=== PATIENT | female | born 1985 | race Caucasian/White ===

== ENCOUNTER 2020-02-05 19:36 | Emergency (ER) | payer SELFPAY ==
[2020-02-05 19:55] VITALS: BP 136/99; PULSE 92; RESP 18; TEMP 35.9; O2SAT 99; BMI 30.9
--- NOTE | 2020-02-05 20:06 | XRR_ITS ---
PROCEDURE INFORMATION: Exam: XR Chest, 2 Views Exam date and time: 02/05/2020 8:07 PM Age: 34 years old Clinical indication: Cough and shortness of breath; Patient HX: Headache, sinus infection, SOB, cough, chest pain TECHNIQUE: Imaging protocol: XR of the chest Views: 2 views. COMPARISON: [place] Chest 1 [place] [id number] 10/03/2017 4:37 PM FINDINGS: Lungs: Unremarkable. No consolidation. Pleural space: No pneumothorax. Heart/Mediastinum: Unremarkable. No cardiomegaly. Bones/joints: No acute findings. XR/XR chest 2V* [id number] IMPRESSION: No acute findings.
--- NOTE | 2020-02-05 20:18 | W.ED.GENADLT ---
HPI - General Adult General: Chief complaint: General Medical Stated complaint: hot flashes, various aches and pain, migraines Time Seen by Provider: 02/05/20 20:06 Source: patient Mode of arrival: ambulatory Limitations: no limitations History of Present Illness: HPI narrative: 34-year-old female who states she has been having sinusitis-like symptoms over the last 2 weeks. States she has had a sinus headache over her maxillary and frontal sinuses. States it is point tender to touch states she her headache is a 5 out of 10. Denies any vomiting or diarrhea. She states she had a slight cough. She denies any fevers. She was placed on a Z-Rk last week with no improvement. Associated symptoms: Reports headache(s); Deny chest pain, nausea, rash or vomiting Review of Systems Const: Denies: fever(s), chills, body aches or change in appetite Eyes: Denies: blurry vision or eye discomfort ENMT: Reports: nasal congestion and sinus pain Card: Denies: chest pain Resp: Reports: non-productive cough GI: Denies: abdominal pain, nausea, vomiting or diarrhea : Denies: dysuria Musc: Denies: neck pain or back pain Skin/Breast: Denies: rash Neuro: Reports: headache(s) Psych: Denies: depression Gregorio/Lymph: Denies: easy bruising All/Imm: Denies: urticaria [facility] ED Female Reproductive History: Date of last menstrual period: 01/22/20 Physical Exam Const: COMMON NORMALS: no acute distress, patient oriented x3 and healthy appearing HENMT: COMMON NORMALS: normocephalic and atraumatic HEAD & SCALP: normocephalic and atraumatic OTHER: tenderness over frontal sinus Eye: COMMON NORMALS: Equal, round and reactive pupils present and EOMs intact bilaterally PUPIL: Yes Equal, round and reactive pupils present Neck/C-Spine: COMMON NORMALS: full ROM and supple Chest: COMMONS NORMALS: normal inspection of the chest and normal palpation of entire chest wall Resp: COMMON NORMALS: normal respiratory effort, No retractions, No use of accessory muscles and clear to auscultation bilaterally AUSCULTATION: clear to auscultation bilaterally Cardio: COMMON NORMALS: regular rate, regular rhythm and No murmurs present (Cardio) RATE: regular rate RHYTHM: regular rhythm GI: COMMON NORMALS: Normal to inspection, nondistended, normoactive bowel sounds present, Soft to palpation, non-tender and no masses PALPATION: Yes Soft to palpation Extremity: COMMON NORMALS: normal to inspection and full ROM Neuro: COMMON NORMALS: patient oriented x3, moves all extremities and no focal motor deficits Psych: COMMON NORMALS: mental status grossly normal, Normal thought process present and cooperative THOUGHT PROCESS: Normal thought process present Skin: COMMON NORMALS: no rashes or lesions noted and no wounds GENERAL SKIN EXAM: no rashes or lesions noted Course Vital Signs: Vital signs: Vital Signs Temperature 96.7 F L 02/05/20 19:55 Pulse Rate 92 02/05/20 19:55 Respiratory Rate 18 02/05/20 19:55 Blood Pressure 136/99 02/05/20 19:55 Pulse Oximetry 99 02/05/20 19:55 MDM - General Adult MDM Narrative: Medical decision making narrative: Sravanthi presents here with a headache with a likely sinus infection. She is tender over her sinuses and has no signs of trapezoid hemorrhage. We will place her on Keflex and she is stable for discharge. Chest x-ray here is normal and has no signs of pneumonia. She is to follow-up with PCP in 3 to 5 days and return to ER if worsening. Imaging Data^: CXR: Attestation: I personally reviewed and interpreted this imaging study as follows: My impression: no acute abnormality Discharge Plan Discharge Patient Disposition: Home Clinical Impression: Sinusitis Qualifiers: Sinusitis location: frontal Chronicity: acute Recurrence: not specified as recurrent Qualified Code(s): J01.10 - Acute frontal sinusitis, unspecified Condition: Stable Prescriptions: New Keflex 500 mg capsule 500 mg PO TID 10 Days Qty: 30 RF: 0 Discharge Orders: Discharge Order (Routine); Ordered 02/05/20 Ordered By: Sloane Cooley Referrals: Senait Schuler APN [Primary Care Provider] - 1-3 days Discharge Diet: Advance as tolerated Discharge Activity: Resume usual activity Patient Instructions: Sinusitis (ED) Stand Alone Forms: Work/School Release Coding Level of Care Code ED [employer] for Chg Fwd Exam Comprehensive
[2020-02-05] MEDS: ketorolac 30 mg/mL INJ IM (20:30)
[2020-02-05] MEDS: promethazine 25 mg/mL SDV 1 mL IM (20:35)
[2020-02-05] MEDS: dexamethasone 10 mg/mL INJ IM (20:35)
[2020-02-05 21:05] VITALS: BP 130/74; PULSE 72; RESP 14; O2SAT 99
== END 2020-02-05 21:08 | disposition home or self-care (01) ==
PROVIDERS: Emergency Provider Emergency Medicine; PCP Nurse Practitioner Family
DX: J01.10 Acute frontal sinusitis, unspecified (principal)
CPT/HCPCS: 12345; 71046; 96372; 96375; 99281; 99283; J1100; J1885; J2550